=== PATIENT | female | born 1950 | race Asian ===

== ENCOUNTER 2019-02-09 11:34 | Emergency (ER) | payer OTHER ==
[~2019-02-09] VITALS: Ht 147.3 cm; Wt 36.0 kg
[~2019-02-09 11:34] MED LIST: DICY10CA40 PO; HYDR12.58 PO; LISI-471 PO; METR500T PO; OMEP20CA16 PO; POLY17PO6 PO; TRAZ-149 PO; [UNRECOGNIZED DRUG - CODE] PO
[2019-02-09 11:44] VITALS: Ht 147.3 cm; Wt 36.0 kg
[2019-02-09] MEDS ORDERED: SOD CHLORIDE 0.9% 1,000 ML IV STA (13:30)
[2019-02-09] MEDS ORDERED: ONDANSETRON 4 MG INJ IV STA (13:30)
[2019-02-09] MEDS ORDERED: SOD CHLORIDE 0.9% 100 ML ONE (13:59)
[2019-02-09] MEDS ORDERED: IOHEXOL 300MG/ML 150 ML BTL ONE (13:59)
[2019-02-09 16:20] VITALS: BP 112/67; PULSE 79; RESP 18
== END 2019-02-09 16:22 | disposition home or self-care (01) ==
LOC: E/R 11:34
DX: K59.00 Constipation, unspecified (principal); I10 Essential (primary) hypertension
CPT/HCPCS: 74177; 80053; 81003; 83690; 84443; 85025; 96361; 96374; J2405; J7030; Q9967; Z7502; Z7610